=== PATIENT | male | born 1950 | race Caucasian/White ===

== ENCOUNTER 2017-08-07 23:29 | Inpatient (IN) | payer OTHER ==
[~2017-08-07] VITALS: Ht 165.1 cm; Wt 79.0 kg
[~2017-08-07 23:29] MED LIST: ALBU0.5N2 NEB; ALBUAER2 INH; ALPR1TAB3 PO; ASCA500 PO; ASPI-435 PO; ATOR80TA PO; CYAN500T13 PO; FRRS300 PO; FRS/40 PO; GLC500 PO; INSUINJ17 SC; LISI-461 PO; LISI20TA3 PO; MIRT15TA53 PO; POTA8CAP6 PO; VENL75CA73 PO; VITAMIN D3 PO
--- NOTE | 2017-08-07 23:52 | EMERGENCY ROOM VISIT NOTE ---
History Report prepared by Jayden: Chad Andrade Under the Supervision of: Dr. Queenie Barrera D.O. First contact with patient: 23:34 Chief Complaint: FALL Stated Complaint: FALL History of Present Illness The patient is a 67 year old male who presents to the Emergency Room after multiple falls throughout the day. The nursing note states EMS was at the patient's house 6 times today, and he refused to come in every time. The patient states he fell today because he lost his balance. He reports he did not hurt himself after falling. The patient notes he does not live alone, and he finally came in because his was yelling at him. He states he did not eat much today, and he has been drinking Pepsi all day. The patient reports she has a history of diabetes, takes insulin, and has lost 130 pounds. He notes his normal blood sugar is in the 70s. The patient denies dizziness, lightheadedness , shortness of breath, chest pain, vomiting, and urinary symptoms. Source of History: patient Onset: throughout the day Position: other (global) Quality: other (multiple falls) Timing: resolved Associated Symptoms: No chest pain, No SOB, No vomiting, No urinary symptoms Note: Associated symptoms: not eating Denies: dizziness, lightheadedness Review of Systems See HPI for pertinent positives & negatives. A total of 10 systems reviewed and were otherwise negative. Past Medical & Surgical Medical Problems: (1) Anxiety (2) COPD (chronic obstructive pulmonary disease) (3) Depression (4) Diabetes (5) HLD (hyperlipidemia) (6) HTN (hypertension) (7) Sleep apnea Family History Patient reports no known family medical history. Social History Smoking Status: Current Every Day Smoker Alcohol Use: none Drug Use: none Marital Status: Housing Status: lives with family Occupation Status: retired Current/Historical Medications Scheduled Albuterol Hfa (Ventolin Hfa), 1 PUFFS INH Q6H Alprazolam (Xanax), 1 MG PO BID Ascorbic Acid (Vitamin C), 500 MG PO QAM Atorvastatin Calcium (Lipitor), 40 MG PO QAM Cholecalciferol (Vitamin D3), 2 TAB PO DAILY Cyanocobalamin (Vitamin B12 500MCG), 1,000 MCG PO QAM Ferrous Sulfate (Ferrous Sulfate), 325 MG PO QAM Furosemide (Lasix), 40 MG PO BID Insulin Aspart 70/30 (Novolog Mix 70/30), 85 UNITS SC TIDM Ipratropium-Albuterol (Duoneb), 1 TREATMENT INH QID Lisinopril (Prinivil), 10 MG PO HS Lisinopril (Prinivil), 20 MG PO DAILY Meloxicam (Mobic), 15 MG PO DAILY Metformin Hcl (Glucophage), 1,000 MG PO BID Mirtazapine (Mirtazapine), 1.5 TAB PO HS Potassium Ext Rel (Klor-Con), 20 MEQ PO BID Ranitidine Hcl (Zantac), 300 MG PO HS Spironolactone (Aldactone), 50 MG PO BID Venlafaxine Hcl (Venlafaxine Extended Rel), 2 TAB PO QAM Scheduled PRN Albuterol Sulf (Proventil 0.083% 2.5MG/3ML), 2.5 MG INH Q6 PRN for Wheezing Lactic Acid (Ammonium Lactate) (Lac-Hydrin), 1 APPLN TOP UD PRN for as needed dry skin Polyethylene Glycol 3350 (Miralax), 17 GM PO DAILY PRN for Constipation Allergies Coded Allergies: Cefadroxil (Verified Allergy, Unknown, FEEL THOUGH ON FIRE, 08/31/15) Physical Exam Vital Signs Date Time Temp Pulse Resp B/P (MAP) Pulse Ox O2 Delivery O2 Flow Rate FiO2 08/08/17 02:58 92 16 131/59 Room Air 08/08/17 01:16 94 16 137/61 95 Room Air 08/07/17 23:42 101 08/07/17 23:35 36.6 99 16 140/85 97 Room Air Physical Exam HEENT: Head - normocephalic and atraumatic Pupils are equal, round, and reactive to light. Extraocular eye muscles are intact, and sclera are anicteric. Nose - moist nasal mucosa without discharge. Mouth - extremely dry buccal mucosa. Oropharynx is nonerythematous and there is no tonsillar exudate or edema noted. Neck: Supple; no JVD, nuchal rigidity, cervical lymphadenopathy. Heart: Regular rate and rhythm. There is a normal S1 and S2 with no murmurs, clicks, or gallops appreciated. Lungs: Clear to auscultation bilaterally with no wheezes, rales, or rhonchi. Abdomen: Soft, completely nontender, nondistended, with good bowel sounds. There are no palpable pulsatile masses or hepatosplenomegaly. There is no guarding, rigidity, or rebound noted. Extremities: Trace lower extremity edema. There are easily palpable peripheral pulses. Multiple scab lesions on hands. Skin: warm and dry with poor turgor and no rashes. Medical Decision & Procedures Laboratory Results 08/07/17 23:55 Red Blood Count 4.75, Mean Corpuscular Volume 88.8, Mean Corpuscular Hemoglobin 31.4, Mean Corpuscular Hemoglobin Concent 35.3, Mean Platelet Volume 9.2, Neutrophils (%) (Auto) 66.0, Lymphocytes (%) (Auto) 17.7, Monocytes (%) (Auto) 14.9, Eosinophils (%) (Auto) 0.9, Basophils (%) (Auto) 0.2, Neutrophils # (Auto ) 3.85, Lymphocytes # (Auto) 1.03, Monocytes # (Auto) 0.87, Eosinophils # (Auto ) 0.05, Basophils # (Auto) 0.01 Test 08/07/17 23:55 08/08/17 00:30 White Blood Count 5.83 K/uL (4.8-10.8) Red Blood Count 4.75 M/uL (4.7-6.1) Hemoglobin 14.9 g/dL (14.0-18.0) Hematocrit 42.2 % (42-52) Mean Corpuscular Volume 88.8 fL (80-100) Mean Corpuscular Hemoglobin 31.4 pg (25-34) Mean Corpuscular Hemoglobin Concent 35.3 g/dl (32-36) Platelet Count 145 K/uL (130-400) Mean Platelet Volume 9.2 fL (7.4-10.4) Neutrophils (%) (Auto) 66.0 % Lymphocytes (%) (Auto) 17.7 % Monocytes (%) (Auto) 14.9 % Eosinophils (%) (Auto) 0.9 % Basophils (%) (Auto) 0.2 % Neutrophils # (Auto) 3.85 K/uL (1.4-6.5) Lymphocytes # (Auto) 1.03 K/uL (1.2-3.4) Monocytes # (Auto) 0.87 K/uL (0.11-0.59) Eosinophils # (Auto) 0.05 K/uL (0-0.5) Basophils # (Auto) 0.01 K/uL (0-0.2) RDW Standard Deviation 42.2 fL (36.4-46.3) RDW Coefficient of Variation 13.0 % (11.5-14.5) Immature Granulocyte % (Auto) 0.3 % Immature Granulocyte # (Auto) 0.02 K/uL (0.00-0.02) Est Creatinine Clear Calc Drug Dose 75.6 ml/min Magnesium Level 1.4 mg/dl (1.8-2.4) Total Bilirubin 0.3 mg/dl (0.2-1) Aspartate Amino Transf (AST/SGOT) 5 U/L (15-37) Alanine Aminotransferase (ALT/SGPT) 15 U/L (12-78) Alkaline Phosphatase 90 U/L (45-117) Total Creatine Kinase 38 U/L (39-308) Creatine Kinase MB 1.1 ng/ml (0.5-3.6) Creatine Kinase MB Ratio 2.9 (0-3.0) Troponin I < 0.015 ng/ml (0-0.045) Total Protein 7.1 gm/dl (6.4-8.2) Albumin 3.1 gm/dl (3.4-5.0) Globulin 4.0 gm/dl (2.5-4.0) Albumin/Globulin Ratio 0.8 (0.9-2) Beta-Hydroxybutyric Acid 3.75 mg/dL (0.2-2.81) Thyroid Stimulating Hormone (TSH) 1.090 uIu/ml (0.300-4.500) Urine Color YELLOW Urine Appearance CLEAR (CLEAR) Urine pH 5.0 (4.5-7.5) Urine Specific [place] 1.030 (1.000-1.030) Urine Protein NEG (NEG) Urine Glucose (UA) 3+ (NEG) Urine Ketones TRACE (NEG) Urine Occult Blood NEG (NEG) Urine Nitrite NEG (NEG) Urine Bilirubin NEG (NEG) Urine Urobilinogen NEG (NEG) Urine Leukocyte Esterase NEG (NEG) Laboratory results per my review. Medications Administered Medications (Trade) Dose Ordered Sig/Tirso Route Start Time Stop Time Status Last Admin Dose Admin Sodium Chloride 1,000 ml @ 250 mls/hr Q4H STAT IV 08/08/17 01:29 08/08/17 04:11 DC 08/08/17 01:29 250 MLS/HR Sodium Chloride 500 ml @ 999 mls/hr Q31M STAT IV 08/08/17 01:29 08/08/17 01:59 DC 08/08/17 01:36 999 MLS/HR Magnesium Sulfate (Magnesium Sulfate) 1 gm NOW STAT IV 08/08/17 01:50 08/08/17 01:53 DC 08/08/17 01:57 1 GM Procedure 0129: Ordered Sodium Chloride 500 ml @ 999 mls/hr IV, Sodium Chloride 1000 ml @ 250 mls/hr IV. 0150: Ordered Magnesium Sulfate 1gm IV ECG Indication: weakness Rate (beats per minute): 100 Rhythm: normal sinus Findings: no acute ischemic change, no ectopy ED Course 2345: The patient was evaluated in room A09B. A complete history and physical examination were performed. Nursing notes and previous electronic medical records were reviewed. IV lock was established and labs were drawn as above. 0106: The nursing staff informed me the patient's glucose is 360. 0129: Ordered Sodium Chloride 500 ml @ 999 mls/hr IV, Sodium Chloride 1000 ml @ 250 mls/hr IV. 0130: Upon reevaluation, I discussed findings and results with the patient. He verbalized agreement of the treatment plan. 0150: Ordered Magnesium Sulfate 1gm IV 0202: I discussed the patient's [facility] The patient will be evaluated for further management and care. Medical Decision The patient is a 67 year old male who presents to the ED after multiple falls. Differential diagnosis includes dehydration, UTI, hyponatremia, hyperglycemia. Lab results show: no leukocytosis, stable H&H, Glucose of 360, sodium of 131, BUN of 24, magnesium of 1.4, normal TSH and LFTs, BHA is 3.75. The patient was found to be significantly hyperglycemic with an elevated BHA. The patient is significantly dehydrated with a low magnesium and low sodium. This could account for the patient's weakness and increased falls. The patient is receiving IV fluids and IV magnesium. [facility] and [facility] will evaluate for further management. Medication Reconcilliation Current Medication List: was personally reviewed by me Blood Pressure Screening Patient's blood pressure: Normal blood pressure Blood pressure disposition: Did not require urgent referral Consults Time Called: 0129 Consulting Physician: [facility] Returned Call: [phone] I discussed the patient's case with [facility]. The patient will be evaluated for further management and care. Impression Primary Impression: DKA (diabetic ketoacidoses) Additional Impressions: Hypomagnesemia Hyponatremia Dehydration Scribe Attestation The scribe's documentation has been prepared under my direction and personally reviewed by me in its entirety. I confirm that the note above accurately reflects all work, treatment, procedures, and medical decision making performed by me. Departure Information Dispostion Being Evaluated By Hospitalist Referrals Xiao Morales M.D. (PCP) Patient Instructions My [facility] Problem Qualifiers Primary Impression: DKA (diabetic ketoacidoses) Diabetes mellitus type: type 2 Diabetes mellitus complication detail: without coma Qualified Codes: E11.10 - Type 2 diabetes mellitus with ketoacidosis without coma
[2017-08-08] VITALS (9 sets, daily range): BP systolic 114–144; BP diastolic 55–75; PULSE 75–100; TEMP 36.6–36.9; O2SAT 91–96; Ht 165.1 cm; Wt 79.0 kg
[2017-08-08 00:10] LABS: BASO % 0.2 %; BASO ABS # 0.01 K/uL (0-0.2); COMPLETE YES; EOS % 0.9 %; HEMATOCRIT 42.2 % (42-52); IG% 0.3 %; LYMPH % 17.7 %; LYMPH ABS # 1.03 K/uL (1.2-3.4); MEAN CELL VOLUME 88.8 fL (80-100); MEAN CORPUSCULAR HEMOGLOBIN 31.4 pg (25-34); MEAN CORPUSCULAR HGB CONC 35.3 g/dl (32-36); MEAN PLATELET VOLUME 9.2 fL (7.4-10.4); MONO % 14.9 %; PLATELET COUNT 145 K/uL (130-400); RED BLOOD COUNT 4.75 M/uL (4.7-6.1); WHITE BLOOD COUNT 5.83 K/uL (4.8-10.8)
[2017-08-08 00:45] LABS: URINE APPEARANCE CLEAR (CLEAR); URINE BILIRUBIN NEG (NEG); URINE COLOR YELLOW; URINE NITRITE NEG (NEG); UROBILINOGEN NEG (NEG)
[2017-08-08 00:46] LABS: MANUAL MICROSCOPIC REQUIRED? NO; REVIEW REQ? NO
[2017-08-08 01:06] LABS: BLOOD UREA NITROGEN 24 mg/dl (7-18); GLUCOSE 360 mg/dl (70-99)
[2017-08-08 01:07] LABS: ALB/GLOB RATIO 0.8 (0.9-2); ALKALINE PHOSPHATASE 90 U/L (45-117); ALT/SGPT 15 U/L (12-78); AST/SGOT 5 U/L (15-37); BUN/CREATININE RATIO 22.1 (10-20); CALCIUM 8.6 mg/dl (8.5-10.1); CARBON DIOXIDE 27 mmol/L (21-32); CHLORIDE 98 mmol/L (98-107); CKMB/CK RATIO 2.9 (0-3.0); MAGNESIUM 1.4 mg/dl (1.8-2.4); SODIUM 131 mmol/L (136-145)
[2017-08-08 01:23] LABS: BETA-HYDROXYBUTYRATE 3.75 mg/dL (0.2-2.81)
[2017-08-08] MEDS ORDERED: SODIUM CHLORIDE 0.9% 1000ML 1,000 ML IV STA (01:29)
[2017-08-08] MEDS ORDERED: SODIUM CHLORIDE 0.9% 500ML 500 ML IV STA (01:29)
[2017-08-08] MEDS ORDERED: MAGNESIUM SULFATE 1GM / D5W 1 GM BAG IV STA (01:50)
[2017-08-08] MEDS ORDERED: LISI20TA3 PO (02:56)
[2017-08-08] MEDS ORDERED: LISI10TA PO (02:56)
[2017-08-08] MEDS ORDERED: MELO15TA10 PO (02:58)
[2017-08-08] MEDS ORDERED: NVLGI7030 SC (03:00)
[2017-08-08] MEDS ORDERED: SPIR25TA PO (03:02)
[2017-08-08] MEDS ORDERED: POLY335019 PO (03:02)
[2017-08-08] MEDS ORDERED: RANI150T3 PO (03:02)
[2017-08-08] MEDS ORDERED: IPRASOL4 INH (03:04)
[2017-08-08] MEDS ORDERED: POTA20TA16 PO (03:04)
[2017-08-08] MEDS ORDERED: METF-384 PO (03:04)
[2017-08-08] MEDS ORDERED: LACT12LO TOP (03:06)
[2017-08-08] MEDS ORDERED: CHOL1000 PO (03:06)
[2017-08-08] MEDS ORDERED: VNTHFA/IN INH (03:07)
[2017-08-08] MEDS ORDERED: ALBINS/ INH (03:07)
[2017-08-08] MEDS ORDERED: ACETAMINOPHEN 325 MG TAB PO PRN (03:15)
[2017-08-08] MEDS ORDERED: INSULIN IV INFUSION PROTOCOL STA (04:28)
--- NOTE | 2017-08-08 04:28 | History and Physical ---
History & Physical Date & Time of Service: Aug 08, 2017 at 04:28 . Chief Complaint: falls, high blood sugars . Primary Care Physician: Rakesh Chung M.D. . History of Present Illness Source: patient, clinic records, hospital records 67 YO male followed by Dr. Chung at the [facility] in [place] as well as the [facility]. History of DM type 2, hypertension, COPD, and other problems noted below. Usually ambulatory with cane or walker; uses scooter outside. Has noted increasing weakness over the last several weeks. He has fallen several times and had to call EMS for assistance. Pt isn't certain why he is falling. Sometimes he feels like he trips, other times his balance is not good. Denies any injuries from the falls. Pt takes metformin and insulin for his diabetes. Blood sugars have been running high for the past few weeks. Pt reports blood sugars in the 300-400 range. He notes polyuria and polydipsia. No blurred vision. Has lost some weight which he attributes to decreased oral intake. He indicates that he has been taking his meds as instructed. . Past Medical/Surgical History Chronic and Resolved Medical Problems: (1) Anxiety Status: Chronic (2) Arthritis Status: Chronic (3) Carotid artery disease Status: Chronic (4) COPD (chronic obstructive pulmonary disease) Status: Chronic (5) Depression Status: Chronic (6) Diabetes mellitus, type 2 Status: Chronic (7) Dyslipidemia Status: Chronic (8) Hypertension Status: Chronic (9) Sleep apnea Status: Chronic (10) Spinal stenosis of lumbar region Status: Chronic Surgical Problems: (1) History of umbilical hernia repair Status: Chronic . Family History MOTHER Sudden cardiac UNCLE Diabetes mellitus Social History Smoking Status: Current Every Day Smoker Alcohol Use: none Drug Use: none Marital Status: Occupational Status: retired Multi-Drug Resistant Organisms History of MDRO: No Allergies Coded Allergies: Cefadroxil (Verified Allergy, Unknown, FEEL THOUGH ON FIRE, 08/31/15) Home Medications Scheduled Albuterol Hfa (Ventolin Hfa), 1 PUFFS INH Q6H Alprazolam (Xanax), 1 MG PO BID Ascorbic Acid (Vitamin C), 500 MG PO QAM Atorvastatin Calcium (Lipitor), 40 MG PO QAM Cholecalciferol (Vitamin D3), 2 TAB PO DAILY Cyanocobalamin (Vitamin B12 500MCG), 1,000 MCG PO QAM Ferrous Sulfate (Ferrous Sulfate), 325 MG PO QAM Furosemide (Lasix), 40 MG PO BID Insulin Aspart 70/30 (Novolog Mix 70/30), 85 UNITS SC TIDM Ipratropium-Albuterol (Duoneb), 1 TREATMENT INH QID Lisinopril (Prinivil), 10 MG PO HS Lisinopril (Prinivil), 20 MG PO DAILY Meloxicam (Mobic), 15 MG PO DAILY Metformin Hcl (Glucophage), 1,000 MG PO BID Mirtazapine (Mirtazapine), 1.5 TAB PO HS Potassium Ext Rel (Klor-Con), 20 MEQ PO BID Ranitidine Hcl (Zantac), 300 MG PO HS Spironolactone (Aldactone), 50 MG PO BID Venlafaxine Hcl (Venlafaxine Extended Rel), 2 TAB PO QAM Scheduled PRN Albuterol Sulf (Proventil 0.083% 2.5MG/3ML), 2.5 MG INH Q6 PRN for Wheezing Lactic Acid (Ammonium Lactate) (Lac-Hydrin), 1 APPLN TOP UD PRN for as needed dry skin Polyethylene Glycol 3350 (Miralax), 17 GM PO DAILY PRN for Constipation Review of Systems Constitutional: + weight loss, No fever Eyes: No worsening of vision, No diplopia ENT: + hearing loss, No sore throat Respiratory: + cough (occasional), + dyspnea on exertion (stable) Cardiovascular: + edema (chronic), No chest pain Abdomen: No pain, No nausea, No vomiting, No diarrhea, No GI bleeding Musculoskeletal: + joint pain Genitourinary - Male: No hematuria, No dysuria Neurologic: + weakness, + balance problems Endocrine: + fatigue, + excessive thirst, + excessive urination Hematologic / Lymphatic: No abnormal bleeding/bruising, No swollen lymph nodes Integumentary: + rash (buttocks) Physical Exam Vital Signs Date Time Temp Pulse Resp B/P (MAP) Pulse Ox O2 Delivery O2 Flow Rate FiO2 08/08/17 03:41 90 08/08/17 03:27 101 16 127/72 08/08/17 03:22 91 08/08/17 02:58 92 16 131/59 Room Air 08/08/17 01:16 94 16 137/61 95 Room Air 08/07/17 23:42 101 08/07/17 23:35 36.6 99 16 140/85 97 Room Air General Appearance: no apparent distress, + obese Head: normocephalic, atraumatic Eyes: normal inspection, PERRL, EOMI, sclerae normal (conjunctivae clear) ENT: hearing grossly normal, pharynx normal, + pertinent finding (edentulous) Neck: supple, no adenopathy, thyroid normal, trachea midline, + pertinent finding (bilateral carotid bruits) Respiratory/Chest: no respiratory distress, no accessory muscle use, + pertinent finding (diffuse mild wheezing) Cardiovascular: regular rate, rhythm, no gallop, no JVD, + systolic murmur (III / systolic murmur at base), + abnormal peripheral pulses (diminished pedal pulses), + pertinent finding (capillary refill toes < 2 sec) Abdomen/GI: normal bowel sounds, non tender, soft, no organomegaly, + pertinent finding (exam limited due to body habitus) Extremities/Musculoskelatal: no calf tenderness Neurologic/Psych: alert, oriented x 3, + pertinent finding (PERRL, EOMI, left facial palsy ? central; motor strenght upper and lower extremities 4.5/5 bilat; patellar DTR's hyporeflexic; plantar reflexes downong bilaterally) Skin: warm/dry, + pertinent finding (chronic venous stasis changes lower extremities; intergluteal erythema without ulceration) Lymphatic: no adenopathy (cervical) Diagnostics Laboratory Results Results Past 24 Hours Test 08/07/17 23:55 08/08/17 00:30 08/08/17 04:18 Range/Units White Blood Count 5.83 4.8-10.8 K/uL Red Blood Count 4.75 4.7-6.1 M/uL Hemoglobin 14.9 14.0-18.0 g/dL Hematocrit 42.2 42-52 % Mean Corpuscular Volume 88.8 80-100 fL Mean Corpuscular Hemoglobin 31.4 25-34 pg Mean Corpuscular Hemoglobin Concent 35.3 32-36 g/dl Platelet Count 145 130-400 K/uL Mean Platelet Volume 9.2 7.4-10.4 fL Neutrophils (%) (Auto) 66.0 % Lymphocytes (%) (Auto) 17.7 % Monocytes (%) (Auto) 14.9 % Eosinophils (%) (Auto) 0.9 % Basophils (%) (Auto) 0.2 % Neutrophils # (Auto) 3.85 1.4-6.5 K/uL Lymphocytes # (Auto) 1.03 1.2-3.4 K/uL Monocytes # (Auto) 0.87 0.11-0.59 K/uL Eosinophils # (Auto) 0.05 0-0.5 K/uL Basophils # (Auto) 0.01 0-0.2 K/uL RDW Standard Deviation 42.2 36.4-46.3 fL RDW Coefficient of Variation 13.0 11.5-14.5 % Immature Granulocyte % (Auto) 0.3 % Immature Granulocyte # (Auto) 0.02 0.00-0.02 K/uL Sodium Level 131 136-145 mmol/L Potassium Level 4.0 3.5-5.1 mmol/L Chloride Level 98 98-107 mmol/L Carbon Dioxide Level 27 21-32 mmol/L Anion Gap 6.0 3-11 mmol/L Blood Urea Nitrogen 24 7-18 mg/dl Creatinine 1.10 0.60-1.40 mg/dl Est Creatinine Clear Calc Drug Dose 75.6 ml/min Estimated GFR () 80.6 Estimated GFR (Non- 69.6 BUN/Creatinine Ratio 22.1 10-20 Random Glucose 360 70-99 mg/dl Calcium Level 8.6 8.5-10.1 mg/dl Magnesium Level 1.4 1.8-2.4 mg/dl Total Bilirubin 0.3 0.2-1 mg/dl Aspartate Amino Transf (AST/SGOT) 5 15-37 U/L Alanine Aminotransferase (ALT/SGPT) 15 12-78 U/L Alkaline Phosphatase 90 45-117 U/L Total Creatine Kinase 38 39-308 U/L Creatine Kinase MB 1.1 0.5-3.6 ng/ml Creatine Kinase MB Ratio 2.9 0-3.0 Troponin I < 0.015 0-0.045 ng/ml Total Protein 7.1 6.4-8.2 gm/dl Albumin 3.1 3.4-5.0 gm/dl Globulin 4.0 2.5-4.0 gm/dl Albumin/Globulin Ratio 0.8 0.9-2 Beta-Hydroxybutyric Acid 3.75 0.2-2.81 mg/dL Thyroid Stimulating Hormone (TSH) 1.090 0.300-4.500 uIu/ml Urine Color YELLOW Urine Appearance CLEAR CLEAR Urine pH 5.0 4.5-7.5 Urine Specific [place] 1.030 1.000-1.030 Urine Protein NEG NEG Urine Glucose (UA) 3+ NEG Urine Ketones TRACE NEG Urine Occult Blood NEG NEG Urine Nitrite NEG NEG Urine Bilirubin NEG NEG Urine Urobilinogen NEG NEG Urine Leukocyte Esterase NEG NEG Bedside Glucose 335 70-99 mg/dl EKG EKG performed at 23:46 reviewed and demonstrated sinus rhythm at 100 / minute, possible age-indeterminate septal infarct. . Impression Assessment and Plan DM TYPE 2, UNCONTROLLED History of DM type 2, most recently managed with metformin and insulin. Patient uncertain which insulin he is currently taking ([facility] records indicated NovoLog Mix 70/30, but need to [facility]). Patient reports blood sugars at home have recently been 300-400. Random blood sugar in ED 360. Check Hgb A1C. Hold metformin during hospital stay. IV insulin per protocol to achieve better glycemic control, then transition to SQ insulin. Ongoing diabetes education / support. DEHYDRATION Secondary to hyperglycemia. Hold diuretics. IV fluids. Follow. HYPONATREMIA Serum sodium 131. Pseudohyponatremia due to elevated blood sugars; corrected blood sugar = 137. Follow. HYPOMAGNESEMIA Mg = 1.4. Received IV MgSO4 in ED. Start oral Mg Oxide. Follow. AMBULATORY DYSFUNCTION Frequent falls over past several weeks. Check CT head to rule out cerebrovascular disease. PT / OT evals. May need further evaluation / consultation if ongoing concerns. HYPERTENSION Continue lisinopril. Follow and titrate Rx. HEART MURMUR III/ systolic murmur. Check echocardiogram to rule out hemodynamically significant valvular heart disease. CAROTID BRUITS Patient reports history of carotid disease; has not had recent follow-up. Check carotid duplex. Start aspirin. COPD Respiratory status stable. Continue Duonebs and Spiriva. SLEEP APNEA Need to clarity history. WEIGHT LOSS Patient reports significant wt loss, perhaps 30 lbs. He states that he has not been eating well. TSH 1.090. Need to ascertain that routine cancer screening is current. May need further evaluation if ongoing concern. VTE PROPHYLAXIS Moderate-high risk for VTE. SQ enoxaparin. Ambulate as able. RESUSCITATION STATUS No living will. Full code. INCOMPLETE DATA Outpatient medication list for medication reconciliation obtained from [facility] E[facility]. [facility] med list will be requested to confirm current outpatient meds. DISPOSITION To be determined. May need skilled care or inpt rehab. Medical follow-up with Dr. Chung ([facility]) and [facility]. . VTE Prophylaxis VTE Risk Assessment Done? Y/N: Yes Risk Level: Moderate Given or contraindicated: Enoxaparin (Lovenox)SQ
[2017-08-08] MEDS ORDERED: MODERATE STRESS LEVEL ONE (04:30)
[2017-08-08] MEDS ORDERED: INSULIN PROTOCOL GOAL RANGE ONE (04:30)
[2017-08-08] MEDS ORDERED: SODIUM CHLORIDE 0.9% 1000ML 1,000 ML IV SCH (05:00)
[2017-08-08] MEDS ORDERED: DEXTROSE 50% 50 ML SYR IV PRN (05:15)
[2017-08-08] MEDS ORDERED: GLUCOSE 40% GEL 15 GM TUBE PO PRN (05:15)
[2017-08-08] MEDS ORDERED: GLUCAGON FOR INJ 1 MG VIAL SQ PRN (05:15)
[2017-08-08] MEDS ORDERED: INSULIN HUMAN REGULAR IV BOLUS 3 UNIT in SYRINGE 0 ML IV SCH (05:15)
[2017-08-08] MEDS ORDERED: GLUCOSE 10 TABS/TUBE PO PRN (05:15)
[2017-08-08] MEDS ORDERED: POLYETHYLENE (MIRALAX) 17 GM PACK PO PRN (05:15)
[2017-08-08] MEDS: INSULIN REGULAR 250 UNITS in SODIUM CHLORIDE 0.9% 250ML 250 ML IV SCH ×5 (05:20→12:54)
[2017-08-08 06:40] LABS: INR 1.1 (0.9-1.1); PARTIAL THROMBOPLASTIN RATIO 1.1; PROTHROMBIN TIME (PATIENT) 11.3 SECONDS (9.0-12.0)
[2017-08-08 06:46] LABS: BUN/CREATININE RATIO 20.3 (10-20); CALCIUM 8.5 mg/dl (8.5-10.1); CREATININE 0.83 mg/dl (0.60-1.40); POTASSIUM 3.5 mmol/L (3.5-5.1)
[2017-08-08 06:50] LABS: CHOLESTEROL/HDL RATIO 3.8
[2017-08-08] MEDS: ALBUT/IPRATROP 3MG/0.5MG NEB 3 ML VIAL INH SCH ×4 (07:22→19:22)
[2017-08-08] MEDS: POTASSIUM CHLORIDE 20 MEQ TABCR PO SCH ×2 (07:34→17:12)
[2017-08-08 08:06] LABS: ESTIMATED AVERAGE GLUCOSE 266 mg/dl; HA1C FLAG Normal (Normal)
--- NOTE | 2017-08-08 08:38 | DIAGNOSTIC IMAGING REPORT ---
CT HEAD WITHOUT CONTRAST (CT) CLINICAL HISTORY: frequent falls COMPARISON STUDY: No previous studies for comparison. TECHNIQUE: Axial CT of the brain is performed from the vertex to the skull base. IV contrast was not administered for this examination. A dose lowering technique was utilized adhering to the principles of ALARA. CT DOSE: 1459.56 mGycm FINDINGS: There is extensive right hemispheric vasogenic edema, likely secondary to a 3.5 cm isodense right temporal lobe mass. This results in 12 mm of right to left midline shift and effacement of the right lateral ventricle. 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 There is subfalcine herniation. There is mild mass effect on the midbrain. No acute hemorrhage is visualized. There is opacification of a single right-sided ethmoid air cell. IMPRESSION: 1. 3.5 cm isodense right temporal lobe mass with extensive right hemispheric vasogenic edema. This results in subfalcine herniation, 12 mm of right to left midline shift, effacement of right lateral ventricle, and contralateral left ventricular hydrocephalus. 2. The findings are most consistent with either a primary or metastatic neoplasm. 3. An MRI is recommended in follow-up. Electronically signed by: Saroj Escalona M.D. 08/08/2017 8:36 AM Dictated Date/Time: 08/08/2017 8:21 AM
[2017-08-08] MEDS ORDERED: FERROUS SULFATE 325 MG TAB PO SCH (09:00)
[2017-08-08] MEDS ORDERED: VENLAFAXINE HCL XR 150 MG CAPXR PO SCH (09:00)
[2017-08-08] MEDS ORDERED: LISINOPRIL 20 MG TAB PO SCH (09:00)
[2017-08-08] MEDS ORDERED: CHOLECALCIFEROL 1000 INTER.UNIT TAB PO SCH (09:00)
[2017-08-08] MEDS ORDERED: ATORVASTATIN 40 MG TAB PO SCH (09:00)
[2017-08-08] MEDS ORDERED: MELOXICAM 7.5 MG TAB PO SCH (09:00)
[2017-08-08] MEDS ORDERED: ENOXAPARIN 40 MG/0.4 ML SYR SQ SCH (09:00)
[2017-08-08] MEDS ORDERED: ALPRAZOLAM 0.5 MG TAB PO SCH (09:00)
[2017-08-08] MEDS ORDERED: CYANOCOBALAMIN 500 MCG TAB (VIT B-12) PO SCH (09:00)
[2017-08-08] MEDS: INSULIN ASPART 100 UNITS/ML 3 ML PEN SC SCH ×3 (09:00→17:24)
[2017-08-08] MEDS ORDERED: ASCORBIC ACID 500 MG TAB PO SCH (09:00)
--- NOTE | 2017-08-08 09:07 | DIAGNOSTIC IMAGING REPORT ---
BILATERAL CAROTID DOPPLER STUDY HISTORY: bilateral carotid bruits COMPARISON: Carotid Doppler 08/07/2012. TECHNIQUE: Real-time, grayscale, and color Doppler sonography of the carotid arteries was performed. Imaging reviewed in the transverse and longitudinal planes. All measurements were calculated based on NASCET criteria. FINDINGS: Antegrade flow is seen in the bilateral vertebral arteries. The brachial pressures are hemodynamically similar. Mild calcified plaque within the right carotid bifurcation. The peak systolic velocity within the right ICA is 98 cm/s. The right systolic ratio is 1.4. 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 This is unchanged. IMPRESSION: 1. No hemodynamically significant stenosis seen within the right carotid arteries. 2. No change in the occluded left ICA. Electronically signed by: Josh Webb M.D. 08/08/2017 9:06 AM Dictated Date/Time: 08/08/2017 9:04 AM
--- NOTE | 2017-08-08 09:51 | Progress Note ---
Progress Note Date of Service Aug 08, 2017 09:[address] HEAD WITHOUT CONTRAST (CT) FINDINGS: There is extensive right hemispheric vasogenic edema, likely secondary to a 3.5 cm isodense right temporal lobe mass. This results in 12 mm of right to left midline shift and effacement of the right lateral ventricle. 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 There is subfalcine herniation. There is mild mass effect on the midbrain. No acute hemorrhage is visualized. There is opacification of a single right-sided ethmoid air cell. IMPRESSION: 1. 3.5 cm isodense right temporal lobe mass with extensive right hemispheric vasogenic edema. This results in subfalcine herniation, 12 mm of right to left midline shift, effacement of right lateral ventricle, and contralateral left ventricular hydrocephalus. 2. The findings are most consistent with either a primary or metastatic neoplasm. 3. An MRI is recommended in follow-up. Electronically signed by: Saroj Escalona M.D. 08/08/2017 8:36 AM Dictated Date/Time: 08/08/2017 8:21 AM Patient and spouse notified of findings. Case discussed with Neurosurgery and Hospital Medicine. Arrangements being made for transfer to [facility] for further evaluation and management. .
[2017-08-08] MEDS ORDERED: DEXAMETHASONE INJ 6 MG in SYRINGE 0 ML IV ONE (10:00)
--- NOTE | 2017-08-08 10:19 | Discharge Summary ---
Discharge Summary Date of Service Aug 08, 2017. Discharge Summary Admission Date: Aug 08, 2017 at 03:11 Discharge Date: Aug 08, 2017 Discharge Disposition: Acute care facility ([facility]) Principal Diagnosis: right temporal mass with vasogenic edema, subfalcine herniation, 12 mm right to left shift OTHER ACUTE DIAGNOSES: DM type 2, uncontrolled dehydration hyponatremia hypomagnesemia ambulatory dysfunction . Procedures: IV fluids IV meds echocardiogram carotid duplex CT HEAD WITHOUT CONTRAST (CT) FINDINGS: There is extensive right hemispheric vasogenic edema, likely secondary to a 3.5 cm isodense right temporal lobe mass. This results in 12 mm of right to left midline shift and effacement of the right lateral ventricle. 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 There is subfalcine herniation. There is mild mass effect on the midbrain. No acute hemorrhage is visualized. There is opacification of a single right-sided ethmoid air cell. IMPRESSION: 1. 3.5 cm isodense right temporal lobe mass with extensive right hemispheric vasogenic edema. This results in subfalcine herniation, 12 mm of right to left midline shift, effacement of right lateral ventricle, and contralateral left ventricular hydrocephalus. 2. The findings are most consistent with either a primary or metastatic neoplasm. 3. An MRI is recommended in follow-up. Electronically signed by: Saroj Escalona M.D. 08/08/2017 8:36 AM Dictated Date/Time: 08/08/2017 8:21 AM . Pending Studies/Follow-Up: echo report pending . Medication Reconciliation Continued Medications: Albuterol Hfa (Ventolin Hfa) 200 Puffs/24025 Mcg Aers 1 PUFFS INH Q6H on hold at time of transfer Albuterol Sulf (Proventil 0.083% 2.5MG/3ML) 2.5 Mg/3 Ml Nebu 2.5 MG INH Q6 PRN for Wheezing on hold at time of transfer Alprazolam (Xanax) 1 Mg Tab 1 MG PO BID Ascorbic Acid (Vitamin C) 500 Mg Tab 500 MG PO QAM Atorvastatin Calcium (Lipitor) 80 Mg Tab 40 MG PO QAM Cholecalciferol (Vitamin D3) 1,000 Unit Tab 2 TAB PO DAILY for 90 Days, #180 TAB 3 Refills Cyanocobalamin (Vitamin B12 500MCG) 500 Mcg Tab 1000 MCG PO QAM Ferrous Sulfate (Ferrous Sulfate) 325 Mg Tab 325 MG PO QAM Furosemide (Lasix) 40 Mg Tab 40 MG PO BID take 40mg in am and 40mg at noon on hold at time of transfer Insulin Aspart 70/30 (Novolog Mix 70/30) Susp 85 UNITS SC TIDM, BTL on hold at time of transfer Ipratropium-Albuterol (Duoneb) 3 Ml Nebu 1 TREATMENT INH QID, INHA Lactic Acid (Ammonium Lactate) (Lac-Hydrin) 12 % Lot 1 APPLN TOP UD PRN for as needed dry skin, 1 Refill on hold at time of transfer Lisinopril (Prinivil) 10 Mg Tab 10 MG PO HS, TAB Lisinopril (Prinivil) 20 Mg Tab 20 MG PO DAILY, TAB Meloxicam (Mobic) 15 Mg Tab 15 MG PO DAILY, TAB on hold at time of transfer Metformin Hcl (Glucophage) 1,000 Mg Tab 1000 MG PO BID, TAB on hold at time of transfer Mirtazapine (Mirtazapine) 15 Mg Tab 1.5 TAB PO HS Polyethylene Glycol 3350 (Miralax) 1 Pow Pow 17 GM PO DAILY PRN for Constipation, #527 GM Potassium Ext Rel (Klor-Con) 20 Meq Tabcr 20 MEQ PO BID, TAB Ranitidine Hcl (Zantac) 150 Mg Tab 300 MG PO HS, TAB Spironolactone (Aldactone) 25 Mg Tab 50 MG PO BID, TAB on hold at time of transfer Venlafaxine Hcl (Venlafaxine Extended Rel) 75 Mg Cap 2 TAB PO QAM Admission Information HPI (per Admitting provider): 67 YO male followed by Dr. Chung at the [facility] in [place] as well as the [facility]. History of DM type 2, hypertension, COPD, and other problems noted below. Usually ambulatory with cane or walker; uses scooter outside. Has noted increasing weakness over the last several weeks. He has fallen several times and had to call EMS for assistance. Pt isn't certain why he is falling. Sometimes he feels like he trips, other times his balance is not good. Denies any injuries from the falls. Pt takes metformin and insulin for his diabetes. Blood sugars have been running high for the past few weeks. Pt reports blood sugars in the 300-400 range. He notes polyuria and polydipsia. No blurred vision. Has lost some weight which he attributes to decreased oral intake. He indicates that he has been taking his meds as instructed. . Physical Exam (per Admitting): General Appearance: no apparent distress, + obese Head: normocephalic, atraumatic Eyes: normal inspection, PERRL, EOMI, sclerae normal (conjunctivae clear) ENT: hearing grossly normal, pharynx normal, + pertinent finding (edentulous ) Neck: supple, no adenopathy, thyroid normal, trachea midline, + pertinent finding (bilateral carotid bruits) Respiratory/Chest: no respiratory distress, no accessory muscle use, + pertinent finding (diffuse mild wheezing) Cardiovascular: regular rate, rhythm, no gallop, no JVD, + systolic murmur ( III/ systolic murmur at base), + abnormal peripheral pulses (diminished pedal pulses), + pertinent finding (capillary refill toes < 2 sec) Abdomen/GI: normal bowel sounds, non tender, soft, no organomegaly, + pertinent finding (exam limited due to body habitus) Extremities/Musculoskelatal: no calf tenderness Neurologic/Psych: alert, oriented x 3, + pertinent finding (PERRL, EOMI, left facial palsy ? central; motor strenght upper and lower extremities 4.5/5 bilat; patellar DTR's hyporeflexic; plantar reflexes downong bilaterally) Skin: warm/dry, + pertinent finding (chronic venous stasis changes lower extremities; intergluteal erythema without ulceration) Lymphatic: no adenopathy (cervical) Physical Exam (per Admitting): Addendum to admission H&P: 1-2 + pretibial edema with chronic venous stasis changes . Hospital Course 67 YO male with DM type 2, hypertension, and other problems as noted. Presented to ED with multiple falls over past few weeks and uncontrolled DM. CT demonstrated right temporal mass with vasogenic edema, subfalcine herniation , 12 mm right to left midline shift. Specific problems are addressed below: RIGHT TEMPORAL MASS Pathology unknown. MRI and Neurosurgical consultation recommended. Neurosurgical services not available at [facility]. Arrangements being made for transfer to [facility] for further evaluation and management. Dexamethasone 6 mg IV x 1, then 4 mg IV q 6 hrs. DM TYPE 2, UNCONTROLLED History of DM type 2, most recently managed with metformin and insulin. Patient uncertain which insulin he is currently taking ([facility] records indicated NovoLog Mix 70/30, but [facility] Patient reports blood sugars at home have recently been 300-400. Random blood sugar in ED 360. Hgb A1C = 10.9. Held metformin during hospital stay. Started IV insulin per protocol to achieve better glycemic control. Expect fluctuating sugars with glucocorticoid therapy. Will hold IV insulin at time of transfer to avoid hypoglycemic en route. Resume management upon arrival to [facility]. Ongoing diabetes education / support. DEHYDRATION BUN 24, creatinine 1.1 at time of admission. Dehydration secondary to hyperglycemia. Holding diuretics. Received IV fluids. Follow. HYPONATREMIA Serum sodium 131 at time of admission. Pseudohyponatremia due to elevated blood sugars; corrected blood sugar = 137. Repeat sodium morning of transfer 135. Follow. HYPOMAGNESEMIA Mg = 1.4. Received IV MgSO4 in ED. Follow. Replace as necessary. AMBULATORY DYSFUNCTION Frequent falls over past several weeks. CT head as noted above. PT / OT evals when medically stable. HYPERTENSION Continue lisinopril. Follow and titrate Rx. HEART MURMUR III/ systolic murmur. Echocardiogram done to rule out hemodynamically significant valvular heart disease. Results pending at time of DC. CAROTID BRUITS Patient reports history of carotid disease; has not had recent follow-up. 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 Antiplatelet therapy with aspirin considered, but will not initiate in light of intracranial mass. COPD Respiratory status stable. Continue Duonebs and Spiriva. SLEEP APNEA Need to clarity history. WEIGHT LOSS Patient reports significant wt loss, perhaps 30 lbs. He states that he has not been eating well. TSH 1.090. Weight loss probably due to underlying malignancy. VTE PROPHYLAXIS Moderate-high risk for VTE. SQ enoxaparin ordered, but cancelled in light of CT demonstrating intracranial mass. SCD's. Ambulate as able. RESUSCITATION STATUS No living will. Full code. INCOMPLETE DATA Outpatient medication list for medication reconciliation obtained from [facility] EMR. Patient receives his meds from [facility]. [facility] to [facility] meds. DISPOSITION Arrangements being made for transfer to [facility] for further evaluation and management of intracranial mass. Anticipate need for skilled care or inpatient rehab after stay at [facility]. Medical follow-up with Dr. Chung ([facility]) and [facility]. . Discharge Instructions Reported Home Medications Medications Dose Route/Sig Max Daily Dose Days Date Category Dose Instructions Proventil 0.083% 2.5MG/3ML (Albuterol Sulf) 2.5 Mg/3 Ml Nebu 2.5 Mg INH Q6 PRN 08/08/17 Reported Ventolin Hfa (Albuterol) 200 Puffs/81926 Mcg Aers 1 Puffs INH Q6H 08/08/17 Reported Lac-Hydrin (Lactic Acid (Ammonium Lactate)) 12 % Lot 1 Appln TOP UD PRN 08/08/17 Reported Vitamin D3 (Cholecalciferol) 1,000 Unit Tab 2 Tab PO DAILY 90 08/08/17 Reported Klor-Con (Potassium Chloride) 20 Meq Tabcr 20 Meq PO BID 08/08/17 Reported Duoneb (Ipratropium-Albuterol) 3 Ml Nebu 1 Treatment INH QID 08/08/17 Reported Glucophage (Metformin Hcl) 1,000 Mg Tab 1,000 Mg PO BID 08/08/17 Reported Zantac (Ranitidine HCl) 150 Mg Tab 300 Mg PO HS 08/08/17 Reported Aldactone (Spironolactone) 25 Mg Tab 50 Mg PO BID 08/08/17 Reported Miralax (Polyethylene Glycol 3350) 1 Pow Pow 17 Gm PO DAILY PRN 08/08/17 Reported Novolog Mix 70/30 (Insulin Aspart Prota 70%/Aspart 30%) Susp 85 Units SC TIDM 08/08/17 Reported Mobic (Meloxicam) 15 Mg Tab 15 Mg PO DAILY 08/08/17 Reported Prinivil (Lisinopril) 20 Mg Tab 20 Mg PO DAILY 08/08/17 Reported Prinivil (Lisinopril) 10 Mg Tab 10 Mg PO HS 08/08/17 Reported Venlafaxine Extended Rel (Venlafaxine Hcl) 75 Mg Cap 2 Tab PO QAM 08/31/15 Reported Mirtazapine 15 Mg Tab 1.5 Tab PO HS 08/31/15 Reported Lipitor (Atorvastatin Calcium) 80 Mg Tab 40 Mg PO QAM 08/31/15 Reported Ferrous Sulfate 325 Mg Tab 325 Mg PO QAM 05/14/15 Reported Vitamin B12 500MCG (Cyanocobalamin) 500 Mcg Tab 1,000 Mcg PO QAM 05/14/15 Reported Vitamin C (Ascorbic Acid) 500 Mg Tab 500 Mg PO QAM 05/14/15 Reported Lasix (Furosemide) 40 Mg Tab 40 Mg PO BID 08/22/06 Reported take 40mg in am and 40mg at noon Xanax (Alprazolam) 1 Mg Tab 1 Mg PO BID 08/22/06 Reported Current Inpatient Medications Medications (Trade) Dose Ordered Sig/Tirso Route Start Time Stop Time Status Last Admin Dose Admin Acetaminophen (Tylenol Tab) 650 mg Q4H PRN PO 08/08/17 03:15 09/07/17 03:14 Insulin Aspart (novoLOG ASPART) SLIDING SCALE PCHS SC 08/08/17 09:00 09/07/17 08:59 Alprazolam (Xanax Tab) 1 mg BID PO 08/08/17 09:00 09/07/17 08:59 08/08/17 08:57 1 MG Ascorbic Acid (Vitamin C Tab) 500 mg QAM PO 08/08/17 09:00 09/07/17 08:59 08/08/17 07:34 500 MG Atorvastatin Calcium (Lipitor Tab) 40 mg QAM PO 08/08/17 09:00 09/07/17 08:59 08/08/17 07:35 40 MG Cholecalciferol (Vitamin D Tab) 2,000 inter.unit DAILY PO 08/08/17 09:00 09/07/17 08:59 08/08/17 07:35 2,000 INTER.UNIT Cyanocobalamin (Vitamin B-12 Tab) 1,000 mcg QAM PO 08/08/17 09:00 09/07/17 08:59 08/08/17 07:34 1,000 MCG Ferrous Sulfate (Feosol Tab) 325 mg QAM PO 08/08/17 09:00 09/07/17 08:59 08/08/17 07:34 325 MG Albuterol/ Ipratropium (Duoneb) 3 ml QIDR INH 08/08/17 08:00 09/07/17 07:59 08/08/17 07:22 3 ML Lisinopril (Zestril Tab) 10 mg HS PO 08/08/17 21:00 09/07/17 20:59 Lisinopril (Zestril Tab) 20 mg DAILY PO 08/08/17 09:00 09/07/17 08:59 08/08/17 07:34 20 MG Potassium Chloride (Klor-Con Tab) 20 meq BID17 PO 08/08/17 09:00 09/07/17 08:59 08/08/17 07:34 20 MEQ Ranitidine HCl (zANTac TAB) 300 mg HS PO 08/08/17 21:00 09/07/17 20:59 Venlafaxine HCl (effeXOR EXTENDED REL CAP) 150 mg QAM PO 08/08/17 09:00 09/07/17 08:59 08/08/17 07:34 150 MG Mirtazapine (Remeron Tab) 22.5 mg HS PO 08/08/17 21:00 09/07/17 20:59 Polyethylene (Miralax Powder Packet) 17 gm DAILY PRN PO 08/08/17 05:15 09/07/17 05:14 Insulin Human Regular 250 units/ Sodium Chloride 252.5 ml @ 0 mls/hr Q24H IV 08/08/17 05:15 09/07/17 05:14 08/08/17 07:32 4.1 MLS/HR Glucose (Glucose 40% Gel) UD PRN PO 08/08/17 05:15 09/07/17 05:14 Glucose (Glucose Chew Tab) 1 tabs UD PRN PO 08/08/17 05:15 09/07/17 05:14 Dextrose (Dextrose 50% 50ML Syringe) 50 ml UD PRN IV 08/08/17 05:15 09/07/17 05:14 Glucagon (Glucagon Inj) 1 mg UD PRN SQ 08/08/17 05:15 09/07/17 05:14 Dexamethasone Sodium Phosphate 6 mg/Syringe 1.5 ml @ 1 mls/min NOW ONCE IV 08/08/17 10:00 08/08/17 10:01 Dexamethasone Sodium Phosphate 4 mg/Syringe 1 ml @ 1 mls/min Q6H IV 08/08/17 18:00 09/07/17 17:59 CONDITION: fair VITALS: q 4 hrs ALLERGIES: cephalosporins ACTIVITY: as tolerated with assistance NURSING: fall precautions aspiration precautions DIET: AHA, diabetic IV: saline lock I/O's: q shift LABS: fingerstick blood sugars AC + HS VTE PROPHYLAXIS: SCD's CODE STATUS: full code Thank you for receiving this patient in transfer. Please call if you have any questions. Phill Remy . Additional Copies To Rakesh Chung M.D.; [facility]
--- NOTE | 2017-08-08 10:27 | ECHOCARDIOGRAM REPORT ---
*NOTICE TO RECEIVING REPUBLICAN AGENCY This information is strictly Confidential and protected under [place] law. [place] law prohibits you from making any further disclosure of this information unless further disclosure is expressly permitted by the written consent of the person to whom it pertains or is authorized by law. A general authorization for the release of medical or other information is not sufficient for this purpose. Hospital accepts no responsibility if the information is made available to any other person, INCLUDING THE PATIENT. Interpretation Summary * Name: ORIN CABRERA Study Date: 08/08/2017 06:49 AM BP: 114/55 mmHg * Patient Location: .[id number]\W258\S\1 HR: 75 * : 1950 (M/d/yyyy) Gender: Male Height: 65 in * Age: 67 yrs Ethnicity: CA Weight: 242 lb * Ordering Physician: Phill Alberto * Referring Physician: YOSHI * Performed By: Mar Shields RDCS * * Reason For Study: MURMURS * BSA: 2.1 m2 * -- Conclusions -- * Normal LV chamber size with moderate concentric LVH. * Hyperdynamic LV systolic function, EF >70%. * No segmental left ventricular wall motion abnormalities are noted. * Grade I diastolic dysfunction. * Moderately calcified aortic valve with borderline aortic stenosis. Procedure Details * A contrast injection of Definity was performed to improve assessment of LV function. * Contrast was injected into an intravenous site in the right arm. * One vial of Definity ultrasound contrast was diluted in normal saline to a total volume of 10 ml. A total of '2' ml of solution was administered during imaging. * Lot # [id number] of Definity utilized for procedure. * Expiration date 1 OCT 08. * The attending nurse who injected the contrast agent was JOSE LUIS BARRETT. Left Ventricle * The left ventricle is normal in size. * There is moderate concentric left ventricular hypertrophy. * Ejection Fraction = >70 %. * The left ventricle is hyperdynamic. * No segmental left ventricular wall motion abnormalities are noted. * The left ventricular wall motion is normal. Right Ventricle * The right ventricular cavity size is normal (basal dimension <4.2 cm in right ventricular apical 4-chamber view). * The right ventricular systolic function is normal as assessed by tricuspid annular plane systolic excursion (TAPSE) (normal >1.5 cm). Atria * The left atrial size is normal. * Right atrial size is normal. * No ASD detected; PFO is not assessed. Mitral Valve * There is mild mitral annular calcification. * There is no mitral valve stenosis. * There is no mitral regurgitation noted. Tricuspid Valve * The tricuspid valve is normal in structure and function. Aortic Valve * The aortic valve is trileaflet. * Moderately calcified aortic valve with borderline aortic stenosis. * There is no significant aortic regurgitation. Pulmonic Valve * The pulmonary valve is not well seen, but the Doppler examination is normal without significant regurgitation or stenosis. Great Vessels * The aortic root is normal size. Pericardium/Pleural * There is no pericardial effusion. Left Ventricular Diastolic Function * Grade I diastolic dysfunction, (abnormal relaxation pattern). MMode 2D Measurements and Calculations IVSd 1.9 cm IVSs 1.9 cm LVIDd 3.4 cm LVIDs 2.4 cm LVPWd 1.9 cm LVPWs 1.9 cm IVS/LVPW 0.97 FS 29.2 % EDV(Teich) 47.8 ml ESV(Teich) 20.5 ml EF(Teich) 57.2 % EDV(cubed) 39.7 ml ESV(cubed) 14.1 ml EF(cubed) 64.6 % % IVS thick 2.0 % % LVPW thick -3.17 % LV mass(C)d 280.5 grams LV mass(C)dI 130.8 grams/m\S\2 LV mass(C)s 186.9 grams LV mass(C)sI 87.1 grams/m\S\2 SV(Teich) 27.4 ml SI(Teich) 12.8 ml/m\S\2 SV(cubed) 25.6 ml SI(cubed) 12.0 ml/m\S\2 Ao root diam 3.3 cm Ao root area 8.6 cm\S\2 LA dimension 2.7 cm LA/Ao 0.80 LVOT diam 1.9 cm LVOT area 3.0 cm\S\2 LVAd ap4 22.7 cm\S\2 LVLd ap4 7.1 cm EDV(MOD-sp4) 57.9 ml EDV(sp4-el) 61.7 ml LVAs ap4 13.9 cm\S\2 LVLs ap4 6.4 cm ESV(MOD-sp4) 26.1 ml ESV(sp4-el) 25.7 ml EF(MOD-sp4) 55.0 % EF(sp4-el) 58.4 % LVAd ap2 17.2 cm\S\2 LVLd ap2 6.8 cm EDV(MOD-sp2) 35.5 ml EDV(sp2-el) 36.8 ml LVAs ap2 10.5 cm\S\2 LVLs ap2 5.7 cm ESV(MOD-sp2) 15.9 ml ESV(sp2-el) 16.6 ml EF(MOD-sp2) 55.1 % EF(sp2-el) 55.0 % LVLd %diff -3.46 % EDV(MOD-bp) 46.1 ml LVLs %diff -12.10 % ESV(MOD-bp) 20.5 ml EF(MOD-bp) 55.7 % SV(MOD-sp4) 31.8 ml SI(MOD-sp4) 14.8 ml/m\S\2 SV(MOD-sp2) 19.5 ml SI(MOD-sp2) 9.1 ml/m\S\2 SV(MOD-bp) 25.7 ml SI(MOD-bp) 12.0 ml/m\S\2 SV(sp4-el) 36.0 ml SI(sp4-el) 16.8 ml/m\S\2 SV(sp2-el) 20.2 ml SI(sp2-el) 9.4 ml/m\S\2 Doppler Measurements and Calculations MV E max misty 81.5 cm/sec MV A max misty 109.4 cm/sec MV E/A 0.75 MV dec time 0.20 sec Ao V2 max 252.2 cm/sec Ao max PG 25.4 mmHg Ao max PG (full) 21.5 mmHg Ao V2 mean 188.3 cm/sec Ao mean PG 15.6 mmHg Ao mean PG (full) 13.5 mmHg Ao V2 VTI 51.0 cm YOANDY(I,A) 1.2 cm\S\2 YOANDY(I,D) 1.2 cm\S\2 YOANDY(V,A) 1.2 cm\S\2 YOANDY(V,D) 1.2 cm\S\2 LV V1 max PG 4.0 mmHg LV V1 mean PG 2.1 mmHg LV V1 max 99.5 cm/sec LV V1 mean 66.7 cm/sec LV V1 VTI 20.4 cm SV(Ao) 440.6 ml SI(Ao) 205.4 ml/m\S\2 SV(LVOT) 60.6 ml SI(LVOT) 28.3 ml/m\S\2
[2017-08-08] MEDS ORDERED: MICONAZOLE NITRATE POWDER 43 GM EXT PRN (10:30)
--- NOTE | 2017-08-08 10:31 | Discharge Instructions ---
Discharge Instructions Date of Service Aug 08, 2017. Admission Reason for Admission: falls, DM type 2 uncontrolled . Discharge Discharge Diagnosis / Problem: falls, DM type 2 uncontrolled, right temporal mass Discharge Goals Goal(s): Improve function, Improve disease control Activity Recommendations Activity Limitations: per Instructions/Follow-up section (with walker and assistance) . Current Hospital Diet Patient's current hospital diet: AHA Diet (Heart Healthy), Diabetes Type 2 Diet Discharge Diet Recommended Diet: AHA Diet (Heart Healthy), Diabetes Type 2 Diet Pending Studies Studies pending at discharge: yes List of pending studies: results from echocardiogram Laboratory Results Hemoglobin A1c Test 08/08/17 06:03 Range/Units Estimated Average Glucose 266 mg/dl Hemoglobin A1c 10.9 H 4.5-5.6 % Lipid Panel Test 08/08/17 06:03 Range/Units Triglycerides Level 208 H 0-150 mg/dl Cholesterol Level 106 0-200 mg/dl HDL Cholesterol 28 mg/dl Cholesterol/HDL Ratio 3.8 LDL Cholesterol, Calculated 36 mg/dl Medical Emergencies . Who to Call and When: Medical Emergencies: If at any time you feel your situation is an emergency, please call 911 immediately. . Non-Emergent Contact Non-Emergency issues call your: Primary Care Provider, Hospital Doctor . . "Provider Documentation" section prepared by Phill Alberto. . VTE Core Measure Inpt VTE Proph given/why not?: SCD's
[2017-08-08] MEDS ORDERED: DEXAMETHASONE INJ 4 MG in SYRINGE 0 ML IV SCH (18:00)
[2017-08-08] MEDS ORDERED: LISINOPRIL 10 MG TAB PO SCH (21:00)
[2017-08-08] MEDS ORDERED: MIRTAZAPINE TAB 15 MG TAB PO SCH (21:00)
[2017-08-08] MEDS ORDERED: RANITIDINE HCL 150 MG TAB PO SCH (21:00)
== END 2017-08-08 19:41 | disposition short-term general hospital (02) | DRG 70 ==
LOC: EDBD 23:29 → C.EDA 23:34 → C.MS2W 08-08 03:11 → ENRESERV 08-08 03:30
PROVIDERS: ADMIT Hospitalist; ATTEND Internal Medicine
DX: G93.9 Disorder of brain, unspecified (principal); G93.6 Cerebral edema; E11.65 Type 2 diabetes mellitus with hyperglycemia; E87.1 Hypo-osmolality and hyponatremia; J44.9 Chronic obstructive pulmonary disease, unspecified; F41.9 Anxiety disorder, unspecified; E78.5 Hyperlipidemia, unspecified; I10 Essential (primary) hypertension; F17.200 Nicotine dependence, unspecified, uncomplicated; Z79.4 Long term (current) use of insulin; E83.42 Hypomagnesemia; M48.061 Spinal stenosis, lumbar region without neurogenic claudication; E86.0 Dehydration; Z79.84 Long term (current) use of oral hypoglycemic drugs; R26.2 Difficulty in walking, not elsewhere classified; Y92.019 Unspecified place in single-family (private) house as the place of occurrence of the external cause; W19.XXXA Unspecified fall, initial encounter; R63.4 Abnormal weight loss